=== PATIENT | male | born 1995 | race Two or more races ===

== ENCOUNTER 2021-03-29 16:56 | Emergency (ER) | payer OTHER ==
[~2021-03-29] VITALS: Ht 177.8 cm; Wt 59.0 kg
[2021-03-29 20:55] VITALS: BP 100/72
[2021-03-29] MEDS ORDERED: HYDROcodone-ACET 10/325MG TAB PO ONE (22:00)
[2021-03-29] MEDS ORDERED: cefTRIAXone 1GM/50ML D5W 50 ML IV ONE (22:00)
[2021-03-29] MEDS ORDERED: BACITRACIN INJ 50000 UNIT VIAL TOP ONE (23:00)
== END 2021-03-29 23:17 | disposition home or self-care (01) ==
LOC: ER 16:56
DX: S62.632A Displaced fracture of distal phalanx of right middle finger, initial encounter for closed fracture (principal); S61.212A Laceration without foreign body of right middle finger without damage to nail, initial encounter; S61.252A Open bite of right middle finger without damage to nail, initial encounter; W54.0XXA Bitten by dog, initial encounter; Y93.89 Activity, other specified; Y92.89 Other specified places as the place of occurrence of the external cause; Y99.8 Other external cause status
CPT/HCPCS: 12001; 73140; 96365; 99284; J0696